=== PATIENT | female | born 1985 | race Caucasian/White ===

== ENCOUNTER 2023-12-06 20:19 | Emergency (ER) | payer MEDICAID, SELFPAY ==
[2023-12-06 20:23] VITALS: BP 139/82; PULSE 67; RESP 16; TEMP 36.3; O2SAT 98; BMI 35.7
--- NOTE | 2023-12-06 20:46 | ED.GENADULT ---
HPI - General Adult General Chief complaint: Post Op Complication Stated complaint: Steri-strips fraying R leg Time Seen by Provider: 12/06/23 20:42 History of Present Illness HPI narrative: Patient is a 38-year-old woman who had a lipoma resected from her right medial thigh. She is complaining tonight of discomfort at the application site of the Steri-Strips. She has had minimal bruising or ecchymosis but feels like the bandages irritating her. No significant bleeding. Patient otherwise feeling well no major complaints or concerns. Related Data Home Medications ?Medication ?Instructions ?Recorded ?Confirmed No Known Home Medications 08/07/23 12/06/23 Allergies Allergy/AdvReac Type Severity Reaction Status Date / Time No Known Drug Allergies Allergy Verified 12/06/23 20:23 Review of Systems Status of ROS: Reports: 6 or more systems reviewed and unremarkable except as noted in History and below [facility] Medical History Worried well ?Z71.1 - Person with feared health complaint in whom no diagnosis is made (ICD-10) Viral pharyngitis ?J02.9 - Acute pharyngitis, unspecified (ICD-10) Strain of shoulder ?S46.919A - Strain of unspecified muscle, fascia and tendon at shoulder and upper arm level, unspecified arm, initial encounter (ICD-10) Recurrent headache ?R51.9 - Headache, unspecified (ICD-10) Pain of foot ?M79.673 - Pain in unspecified foot (ICD-10) Migraine ?G43.909 - Migraine, unspecified, not intractable, without status migrainosus (ICD-10) Headache ?R51.9 - Headache, unspecified (ICD-10) Foot contusion ?S90.30XA - Contusion of unspecified foot, initial encounter (ICD-10) Episode of heavy vaginal bleeding ?N93.9 - Abnormal uterine and vaginal bleeding, unspecified (ICD-10) Encounter for postoperative wound check ?Z48.89 - Encounter for other specified surgical aftercare (ICD-10) Biliary colic ?K80.50 - Calculus of bile duct without cholangitis or cholecystitis without obstruction (ICD-10) Surgical History S/P foot surgery, right (04/23/11) ?Z98.890 - Other specified postprocedural states (ICD-10) History of surgical fusion joint (11/11/16) ?Z98.1 - Arthrodesis status (ICD-10) Social History Smoking Status: Never smoker Do you use any of these nicotine containing products: None Non-prescribed substance use: denies use Exam Narrative: Exam Narrative: EXAM GENERAL: Patient appears comfortable and well. EYES: No scleral icterus. LYMPH: No supraclavicular or cervical lymphadenopathy. SKIN: Well-healing incision on the right medial thigh no other significant findings. EXT: No dependent lower extremity pedal edema. HEART: Regular rate and rhythm with no murmurs, rubs, or gallops. LUNGS: Clear to auscultation bilaterally with no crackles or wheezes. ABD: Soft, non tender, non distended. PSYCH: Good eye contact, speech is not pressured. Const: Vital Signs, click to edit/add: Vital Signs - 24 hr 12/06/23 20:23 Temperature 97.3 F L Pulse Rate [Pulse Oximeter] 67 Respiratory Rate 16 Blood Pressure [Ri ght Upper Arm] 139/82 Pulse Oximetry 98 Oxygen Delivery Me thod Room Air Course Vital Signs Vital signs: Initial Vital Signs Temperature 97.3 F L 12/06/23 20:23 Temperature Source Temporal Artery Scan 12/06/23 20:23 Pulse Rate 67 12/06/23 20:23 Respiratory Rate 16 12/06/23 20:23 Blood Pressure 139/82 12/06/23 20:23 Blood Pressure Mean 101 12/06/23 20:23 Blood Pressure Position Sitting 12/06/23 20:23 Pulse Oximetry 98 12/06/23 20:23 Oxygen Delivery Method Room Air 12/06/23 20:23 Vital Signs Temperature 97.3 F L 12/06/23 20:23 Pulse Rate 67 12/06/23 20:23 Respiratory Rate 16 12/06/23 20:23 Blood Pressure 139/82 12/06/23 20:23 Pulse Oximetry 98 12/06/23 20:23 Oxygen Delivery Method Room Air 12/06/23 20:23 Temperature 97.3 F L 12/06/23 20:23 Pulse Rate 67 12/06/23 20:23 Respiratory Rate 16 12/06/23 20:23 Blood Pressure 139/82 12/06/23 20:23 Pulse Oximetry 98 12/06/23 20:23 Oxygen Delivery Method Room Air 12/06/23 20:23 Discharge Plan Discharge Clinical Impression: Incisional irritation Patient Disposition: Home, Self-Care Condition: Stable Additional Instructions: Continue current care Follow-up with your doctor as needed. Activity Level: No Restrictions Discharge Diet: Regular Prescriptions: No Action No Known Home Medications Follow Up/Referrals: Provider,Not a Local [Primary Care Provider] - Stand Alone Forms: MyHealth Info Instructions
== END 2023-12-06 20:55 | disposition home or self-care (01) ==
PROVIDERS: Emergency Provider Internal Medicine; PCP Family Medicine
DX: G89.18 Other acute postprocedural pain (principal)
CPT/HCPCS: 99282; 99283

== ENCOUNTER 2024-03-05 10:45 | Outpatient (RCR) | payer MEDICAID, SELFPAY | END 2024-06-01 10:05 | disposition home or self-care (01) | PROVIDERS: PCP Family Medicine; Visit Provider Family Medicine | DX: M22.42 Chondromalacia patellae, left knee (principal); M25.562 Pain in left knee; Z51.89 Encounter for other specified aftercare | CPT/HCPCS: 97110; 97112; 97140; 97161 ==

== ENCOUNTER 2024-08-21 22:20 | Emergency (ER) | payer MEDICAID, SELFPAY ==
--- OUTSIDE RECORDS SUMMARY | 2024-08-21 22:24 | XMS_ITS | Clinical Summary ---
Author Organization [facility] Address [address] [place] [address] Care Team Providers Care Unix Administrator Name Role Phone Maria Victoria Camar[place] [facility] Unavailable Unavaila Aelxus Bazan MD Unavailable [phone] Alyse Watson DO Primary Care Provider [phone] Allergies No known active allergies Medications oxyCODONE-aceta minophen 5-325 mg per tabletIndicatio ns:S/P left knee arthroscopy Take 1-2 Tablets by mouth every 6 hours if needed for Pain. Max acetaminophen dose: 4000mg in 24 hrs. 30 Tablet 5 5:32 PM CDT 08/20/19 25 Active methocarbamoL 750 mg tabletIndicatio ns:S/P left knee arthroscopy Take 1 Tablet (750 mg) by mouth every 6 hours if needed for Muscle Spasm. 30 Tablet 5 5:32 PM CDT 08/20/19 25 Active aspirin 81 mg enteric coated tabletIndicatio ns:S/P left knee arthroscopy Take 1 Tablet (81 mg) by mouth two times daily with meals for 14 days. 28 Tablet 5 5:32 PM CDT 08/20/19 25 025 Active docusate 100 mg capsuleIndicati ons:S/P left knee arthroscopy Take 1 Capsule (100 mg) by mouth 2 times daily if needed (constipation). 30 Capsule 5 5:32 PM CDT 08/20/19 25 Active ondansetron 4 mg tabletIndicatio ns:S/P left knee arthroscopy Take 1 Tablet (4 mg) by mouth every 8 hours if needed for Nausea/Vomiting. 20 Tablet 5 5:32 PM CDT 08/20/19 25 Active meloxicam 15 mg tabletIndicatio ns:Chondromalac ia of left patella Take 1 Tablet (15 mg) by mouth once daily. 30 Tablet 2 01/01/20 24 025 Discontin ued(*Med complete/ Regimen complete/ Level of care change) Active Problems Problem Noted Date Diagnosed Date Medial Plica syndrome of left knee 07/16/2024 Chondromalacia of patellofemoral joint, left 07/2024 GIL III (cervical intraepith elial neoplasia grade III) with severe dysplasia 04/14/2016 Overview (12/04/2023): 04/2011 LSIL 05/2011 [place]: GIL I 01/2014 NIL/HPV+ 02/2014 [place]: Negative 04/2016 ASCH/HPV+ 05/2016 [place]: GIL II-III 05/2018 ASCUS/HPV Negative 11/2023 NIL/HPV Negative Plan: Pap/HPV testing due in 1 year Migraines 12/24/2012 Recurrent major depression in partial remission 07/20/2012 HSV-1 (herpes simplex virus 1) infection 012 Tobacco use disorder 01/20/2007 Resolved Problems Problem Noted Date Diagnosed Date Resolved Date Cervical high risk HPV (gela n papillomavirus) test positive 01/13/2014 12/04/2023 Overview (05/17/2016): 01/2014 NIL/HPV+ LGSIL (low grade squamous in traepithelial dysplasia) 201105/13/2011 12/04/2023 Major depressive disorder, r ecurrent episode, moderate 07/25/2010 07/20/2012 Unspecified episodic mood disorder 02/24/2007 07/20/2012 Supervision of other normal 12/05/2006 Encounters Date Type Department Care Team Description 08/21/2024 Telephone [facility] [address] [place] [address] [address] Armando Kapoor MD Pain (Pain after surgery.) 08/21/2024 Nurse Triage [facility] [address] [place] [address] Sincere Littlejohn MD Post-op 08/19/2024 11:14 AM CDT Anesthesia Event [facility] [address] [place] [address] Joann Adam CRNA Peterson, Bonnie Gail, CRNA 08/19/2024 11:05 AM CDT - 08/19/2024 12:50 PM CDT Surgery [facility] [address] [place] [address] Sincere Littlejohn MD Arthroscopic CHONDROPLASTY - LT KNEE, PARTIAL SYNOVECTOMY(FAT PAD OR PLICA) - LT KNEE 08/19/2024 9:33 AM CDT - 08/19/2024 2:12 PM CDT Hospital Encounter [facility] [address] [place] [address] Sincere Littlejohn MD Chondromalacia of patellofemoral joint, left (Primary Dx); Medial Plica syndrome of left knee; S/P left knee arthroscopy Discharge Disposition: Home Self Care 08/19/2024 Travel 08/11/2024 11:15 AM CDT Office Visit [facility] [address] [place] [address] Idalia Perez MD Pre-Op Exam (Arthroscopic CHONDROPLASTY - LT KNEE - PARTIAL SYNOVECTOMY(FAT PAD OR PLICA) - LT KNEE [facility] 08/19/24) 08/11/2024 Travel 08/06/2024 Travel 07/16/2024 12:45 PM CDT Office Visit [facility] [address] [place] [address] Sincere Littlejohn MD Consult (left knee) 07/16/2024 12:30 PM CDT Ancillary Procedure [facility] [address] [place] [address] 07/16/2024 Travel 07/14/2024 Telephone [facility] [place] [address] [facility] [address] [place] [phone] Sincere Littlejohn MD Appointment (Needs x-rays) 07/11/2024 Travel 05/28/2024 9:00 AM RN STARS Procedure Only [facility] [address] [place] [address] J Luis Cuadra MD Procedure (Ultrasound guided injection lef... 05/28/2024 Travel from Last 3 Months Immunizations Immunization Administration Dates Next Due DT (Age < 7 years) 08/02/1991,04/02/1988 DTP 11/07/1987,08/07/1987,02/24/1987 Hepatitis B (Peds) 07/19/1998,04/27/1998, 998 Hepatitis B, Unspecified 07/19/1998,04/27/1998,1 04/23/1997 Influenza, IIV3 (Age >=3 years) 02/15/2010,01/02,05/27/2006 MMR 04/02/1988 Oral Polio Vaccine 08/02/1991,04/02/1988, 988,02/24/1987 Tdap 09/29/2019,10/12/2012,01/02/2009 Family History Medical History Relation Name Comments Asthma Father COPD Father Psychiatric illness Father Depressi on Cancer-breast Maternal Aunt in her 50's Arthritis Mother Other Mother migraines Psychiatric illness Mother Depressi on Relation Name Status Comments Father Maternal Aunt Mother Alive Social History Tobacco Use Types Packs/Day Years Used Date Smoking Tobacco: Every Day Cigarettes 0.3 5 Smokeless Tobacco: Never Tobacco Cessation:Ready to Q uit: No; Counseling Given: Yes Comments:less than 1/2 pack a day Alcohol Use Standard Drinks/Week Comments No 0 (1 standard drink = 0.6 oz pur e alcohol) PHQ-2 Answer Date Recorded PHQ-2 TOTAL SCORE 6 11/21/2023 Social Connections Answer Date Recorded Do you often feel lonely or isolated from those around you? 4 12/19/2023 Financial Resource Strain Answer Date R ecorded Difficulty of Paying Living Expenses 3 11/21/2023 Difficulty of Paying Living Expenses Not on file 11/21/2023 Food Insecurity Answer Date Recorded Do you worry your food will run out before you are able to buy more? 1 12/19/2023 Transportation Needs Answer Date Record ed Does lack of transportation keep you from medica l appointments? 1 12/19/2023 Does lack of transportation keep you from work, meetings or getting things that you need? 1 12/19/2023 Housing Stability Answer Date Recorded What is your housing situation today? 3 12/19/2023 Utilities Answer Date Recorded Do you have trouble paying f or utilities (for example, heat, electricity, water, phone)? 1 12/19/2023 Comments No Sex and Gender Information Value Date Recorded Sex Assigned at Not on file Legal Sex Female 5:41 AM RN STARS Gender Identity Not on file Sexual Orientation Not on file Obstetrics History Para Term AB IAB SAB Ectopic Multiple Livin g Live Births 6 3 2 0 3 0 3 0 0 3 3 Date Outcome GA Total Labor Labor/2nd/3rd Weight Sex Type Anes PTL Radha A1 A5 Name Clin 2006 Term 40w 0d 10h 00m/ 3.46 kg (7 lb 10 oz) M VAGINA L FORC Livin g Manavjose y 2007 Para F Vag Livin g Savannah 2007 SAB Comments:Molar pregnan cy 9 SAB 9 SAB 2019 Term Vag Livin g Jeromy Last Filed Vital Signs Vital Sign Reading Time Taken Comments Blood Pressure 98/56 08/19/2024 2:05 PM CDT Pulse 63 08/19/2024 2:05 PM CDT Temperature 36.1 C (97 F) 08/19/2024 1:30 PM CDT Respiratory Rate 16 08/19/2024 2:00 PM CDT Oxygen Saturation 96% 08/19/2024 2:05 PM CDT Inhaled Oxygen Concentration - - Weight 85.7 kg (188 lb 15 oz) 08/19/2024 10:09 A M CDT Height 152.4 cm (5') 08/19/2024 10:09 AM CDT Body Mass Index 36.9 08/19/2024 10:09 AM CDT Plan of Treatment Upcoming Encounters Date Type Department Care Team (Late st Contact Info) Description 09/02/2024 2:30 PM CDT Office Visit [facility] [address] [place] [phone] Artem De La Torre PA [address] [place] [address] [address] [place] [id number] 10/14/2024 2:00 PM CDT Office Visit [facility] [address] [place] [phone] Artem De La Torre PA [address] [place] [address] [address] [place] [id number] 12/17/2024 1:45 PM CDT Office Visit [facility] [address] [place] [address] Sincere Littlejohn MD [address] [place] [address] [address] [place] [phone] Health Maintenance Due Date Last Done Comments Hepatitis C screening for ag e 18-79 2004 Pneumococcal series for age 6-49 (1 of 2 - PCV) 2005 COVID-19 vaccine series ( - 2023- season) 2023 Depression screening for age 12+ 11/20/2024 11/21/2023, 11/04/2016, 08/26/2016, Additional history exists Pap test for age 21-65 11/20/2024 , 11/21/2023, 06/02/2018, Additional history exists Influenza Vaccine (Season Ended) 2024 02/15/2010, 01/02/2009, 05/27/2006 BMI (ht and wt on same day) for age 18+ 08/11/2025 08/11/2024, 08/11/2024, 12/01/2023, Additional history exists Tetanus booster 09/28/2029 09/29/2019, 07/0 04/2012, 01/02/2009 HIV for age 15-65 Completed 07/24/2007 Tdap Completed 09/29/2019, 07/0 04/2012, 01/02/2009 Procedures Procedure Name Priority Date/Time Associated Diagnosis Comments SUPRAGLOTTIC-LMA Routine 08/19/2024 11:4 1 AM CDT URINE Preop 08/19/2024 9:52 AM CDT XR KNEE WB 1 VIEW AP BILATERAL AND 3 VIEWS LEFT Routine 07/16/2024 12:38 PM CDT Left knee pain, unspecified chronicity BEDSIDE US STUDY ARCHIVE Routine 05/28/2024 11:59 AM RN STARS Plica syndrome of left knee Chondromalacia of left patella HPV HIGH RISK Routine 11/21/2023 3:55 PM CDT Screening for cervical cancer ANTI HIV 1/2 Routine 07/24/2007 10:59 AM CDT Supervision Of Other Normal (Hc) from Last 3 Months or Most Recently Relevant to Health Maintenance Results * Supraglottic (08/19/2024 11:41 AM CDT) Narrative Joann Adam CRNA - 08/19/2024 11:41 AM CDT Joann Adam CRNA 08/19/2024 11:45 AM Procedure: Supraglottic Patient location during procedure: OR Supraglottic Airway Properties Mask Ventilation: not attempted Type: i-gel Tube Size: 4 Placement Verification: auscultation and CO2 detection Assessment Assessment: atraumatic and dentition unchanged Joann Adam CRNA ANESTHESIA PX NOTE ORDER VIJAYA Final Result * Urine (08/19/2024 9:52 AM CDT) ,URIN E Negative Negative 08/19/2024 9:56 AM CDT [facility] Urine URINE SPECIMEN / Unknown Non-Blood / Unknown 08/19/2024 9:52 AM CDT 08/19/2024 9:52 AM CDT Micaela Taylor PA URINE Final R esult [facility] [address] [place] [address] * XR KNEE WB 1 VIEW AP BILATERAL AND 3 VIEWS LEFT (07/16/2024 12:38 PM CDT) Anatomical Region Laterality Modality KNEES, KNEE L Computed Radiogr aphy 07/16/2024 3:4 1 PM CDT Narrative 07/16/2024 3:41 PM CDT For Patients: As a result of the Cures Act, medical imaging exams and procedure reports are released immediately into your electronic medical record. You may view this report before your referring provider. If you have questions, please contact your health care provider. Indication: Left knee pain, unspecified chronicity Technique: XR KNEE WB 1 VIEW AP BILATERAL AND 3 VIEWS LEFT Comparison: 02/16/2014 Findings: Bones: Alignment is normal. No fractures or bone lesions. Joint spaces: Joint spaces are well maintained. No degenerative changes. No sign of joint effusion. Soft tissues: Unremarkable. Impression: No findings to explain pain. Dictated by Ahmet Bullock MD @ 07/16/2024 3:41:07 PM (Electronically Signed) Procedure Note Ahmet Bullock MD - 07/16/2024 For Patients: As a result of the Cures Act, medical imagingexams and procedure reports are released immediately into your electronicmedical record. You may view this report before your referring provider.If you have questions, please contact your health care provider. Indication: Left knee pain, unspecified chronicity Technique: XR KNEE WB 1 VIEW AP BILATERAL AND 3 VIEWS LEFT Comparison: 02/16/2014 Findings: Bones: Alignment is normal. No fractures or bone lesions. Joint spaces: Joint spaces are well maintained. No degenerative changes.No sign of joint effusion. Soft tissues: Unremarkable. Impression: No findings to explain pain. Dictated by Ahmet Bullock MD @ 07/16/2024 3:41:07 PM (Electronically Signed) Sincere Littlejohn MD GENERAL IMAGING Final Resul t * BEDSIDE US STUDY ARCHIVE (05/28/2024 11:59 AM RN STARS) Narrative Alley Nelson Mariama - 05/28/2024 11:59 AM RN STARS The patient was seen for ultrasound guided injection by Dr. J Luis Cuadra. Ultrasound was not used for diagnostic purposes, but to guide the needle placement and document the position of the injection. See patient's EPIC encounter for the detail of the procedure; see MYRIAM for saved images of the injection. us J Luis Cuadra MD PROCEDURE ORD Final Resu lt * HPV HIGH RISK (11/21/2023 3:55 PM CDT) TYPE 16 Negative Negative 11/26/2023 9:12 AM CDT [facility] TYPE 18 Negative Negative 11/26/2023 9:12 AM CDT [facility] OTHER HIGH RISK TYPES Negative Negative 11/26/2023 9:12 AM CDT [facility] Other (Cervical) Non-Blood / Unknown 11/21/2023 3:55 PM CDT 11/24/2023 9:57 AM CDT Narrative [facility] - 11/26/2023 9:12 AM CDT HPV types 16, 18, 31, 33, 35, 39, 45, 51, 52, 56, 58, 59, 66 and 68 DNA were undetectable or below the pre-set threshold. Methodology: Sanaz Stephan 4800 HPV Test us Alyse Watson DO MICROBIOLOGY Final Resu lt [facility] [address] [place] [address], * ANTI HIV 1/2 (07/24/2007 10:59 AM CDT) ANTI HIV 1/2 Non-reacti ve [facility] Blood specimen (specimen) BLOOD SPECIMEN / Unknown 07/24/2007 10:59 AM CDT 07/24/2007 10:06 AM CDT us rAti Taylor MD SEND OUTS Final Result [facility] INTERNAL ZIP [address] [address] from Last 3 Months or Most Recently Relevant to Health Maintenance Insurance [facility] [address] [address] [place] [id number] Advance Directives * Full Code (Latest Code Status on File) Date Activated Date Inactivated Comments 08/19/2024 9:38 AM 08/19/2024 4:27 PM Question Answer Comments Code Status Discussion: Unable to Assess Preferences, Provider to review later Care Teams Unix Administrator Relationship Specialty Start Date End Date Alyse Watson DO [address] [place] [address] PCP - General Family Practice 08/17/24 Maria Victoria [place]ar[place] CNS Clinical Nurse Specialist 05/04/12 Alexus Smith MD HOME CARE ASSISTANT Obstetrics and Gynecology 09/29/12
[2024-08-21 22:27] VITALS: BP 148/81; PULSE 84; RESP 18; TEMP 36.7; O2SAT 98
--- NOTE | 2024-08-21 22:39 | ED.GENADULT ---
HPI - General Adult General Chief complaint: Extremity Pain/Injury, Lower Stated complaint: L knee pain, post surgery Time Seen by Provider: 08/21/24 22:28 History of Present Illness HPI narrative: This 38-year-old female comes in here because of knee pain after surgery that occurred 2 days ago. She had this surgery done in [place] and it was a procedure to remove a fat pad or apply cuff from her left knee. It was a arthroscopic surgery. The patient states that she did really well for the next day or so but today has had significant pain and was not able to bear weight at all. She did call the orthopedic office and was told to loosen the wrap on her knee. She did this without much relief. She was instructed to come in here. She arrives with normal vital signs. Related Data Previous Rx's ?Medication ?Instructions ?Recorded ketorolac 10 mg tablet 10 mg PO TID 5 days #15 tabs 08/21/24 Allergies Allergy/AdvReac Type Severity Reaction Status Date / Time No Known Drug Allergies Allergy Verified 12/06/23 20:23 Review of Systems Status of ROS: Reports: 10 or more systems reviewed and unremarkable except as noted in History and below Narrative: Constitutional: No fevers, no weight gain or loss. Eyes: No discharge. No vision changes. HENT: No congestion, no sore throat, no ear pain. Cardiovascular: No chest pain, no palpitations. Respiratory: No shortness of breath, no wheezes, no cough. Gastrointestinal: No abdominal pain, no vomiting, no diarrhea. Genitourinary: No dysuria, no hematuria. Musculoskeletal: Surgery to the left knee as described above. Skin: No rashes, no pruritis. Neurological: No dizziness, weakness, sensory change, speech change. Endo/Heme/Allergies: No bruising or bleeding. No polydipsia. Pysch: no suicidality, no anxiety, no insomnia. All other systems reviewed and are negative. [facility] Medical History Worried well ?Z71.1 - Person with feared health complaint in whom no diagnosis is made (ICD-10) Viral pharyngitis ?J02.9 - Acute pharyngitis, unspecified (ICD-10) Strain of shoulder ?S46.919A - Strain of unspecified muscle, fascia and tendon at shoulder and upper arm level, unspecified arm, initial encounter (ICD-10) Recurrent headache ?R51.9 - Headache, unspecified (ICD-10) Pain of foot ?M79.673 - Pain in unspecified foot (ICD-10) Migraine ?G43.909 - Migraine, unspecified, not intractable, without status migrainosus (ICD-10) Headache ?R51.9 - Headache, unspecified (ICD-10) Foot contusion ?S90.30XA - Contusion of unspecified foot, initial encounter (ICD-10) Episode of heavy vaginal bleeding ?N93.9 - Abnormal uterine and vaginal bleeding, unspecified (ICD-10) Encounter for postoperative wound check ?Z48.89 - Encounter for other specified surgical aftercare (ICD-10) Biliary colic ?K80.50 - Calculus of bile duct without cholangitis or cholecystitis without obstruction (ICD-10) Surgical History S/P foot surgery, right (04/23/11) ?Z98.890 - Other specified postprocedural states (ICD-10) History of surgical fusion joint (11/11/16) ?Z98.1 - Arthrodesis status (ICD-10) Social History Smoking Status: Never smoker Do you use any of these nicotine containing products: None Non-prescribed substance use: denies use Exam Narrative: Exam Narrative: Constitutional: Well-developed, well-nourished, no acute distress. HEENT: Normocephalic, atraumatic. Neck: Normal range of motion. Nontender. Supple. Heart: Intact distal pulses. Lungs: No chest discomfort. No wheezes, rhonchi, or rales. Abdomen: Nontender. Back: Normal range of motion. Extremities: Left knee bandaging was removed to examine the knee. The surgical wounds from arthroscopy appear to be healing normally without any sign of drainage or infection. There is typical associated surrounding edema and erythema. Skin: Intact. No rash. Warm. No erythema or pallor. Neurologic: No altered sensation. No weakness. Alert and oriented. Psychiatric: No suicidality. No anxiety or depression. No insomnia. Nursing notes and vitals signs are reviewed. Const: Vital Signs, click to edit/add: Vital Signs - 24 hr 08/21/24 22:27 Temperature 98.1 F Pulse Rate [Right Pulse Oximeter] 84 Respiratory Rate 18 Blood Pressure [Ri ght Upper Arm] 148/81 H Pulse Oximetry 98 Oxygen Delivery Me thod Room Air Course Vital Signs Vital signs: Initial Vital Signs Temperature 98.1 F 08/21/24 22:27 Temperature Source Temporal Artery Scan 08/21/24 22:27 Pulse Rate 84 08/21/24 22:27 Respiratory Rate 18 08/21/24 22:27 Blood Pressure 148/81 H 08/21/24 22:27 Blood Pressure Mean 103 08/21/24 22:27 Blood Pressure Position Sitting 08/21/24 22:27 Pulse Oximetry 98 08/21/24 22:27 Oxygen Delivery Method Room Air 08/21/24 22:27 Vital Signs Temperature 98.1 F 08/21/24 22:27 Pulse Rate 84 08/21/24 22:27 Respiratory Rate 18 08/21/24 22:27 Blood Pressure 148/81 H 08/21/24 22:27 Pulse Oximetry 98 08/21/24 22:27 Oxygen Delivery Method Room Air 08/21/24 22:27 Temperature 98.1 F 08/21/24 22:27 Pulse Rate 84 08/21/24 22:27 Respiratory Rate 18 08/21/24 22:27 Blood Pressure 148/81 H 08/21/24 22:27 Pulse Oximetry 98 08/21/24 22:27 Oxygen Delivery Method Room Air 08/21/24 22:27 Medical Decision Making [facility] Narrative Medical decision making narrative: This patient has increased pain in her left knee status post a arthroscopic surgery done 2 days ago. I did examine her knee and see no sign of infection or other complication. It seems her issue was a matter of pain relief at this time and for this visit. She may have had an injection of a longer lasting medicine that has now worn off. The patient did receive an intramuscular injection of morphine 10 mg. The left knee was read bandaged and she is instructed to follow-up with her primary surgeon for ongoing management. She does have oxycodone that she can take for pain relief and I did provide a prescription for Toradol. Discharge Plan Discharge Clinical Impression: Post-op pain Patient Disposition: Home, Self-Care Condition: Stable Additional Instructions: Take medication for pain as needed and directed. Use crutches for assistance in ambulating. Follow up with surgery Clinic for ongoing management. Prescriptions: New ketorolac 10 mg tablet 10 mg PO TID 5 Days Qty: 15 0RF Follow Up/Referrals: Alyse Watson DO [Primary Care Provider] - Stand Alone Forms: Trly Un[employer] Info Instructions
--- OUTSIDE RECORDS SUMMARY | 2024-08-21 22:49 | XMS_ITS | Clinical Summary ---
Author Organization [facility] Address [address] [place] [address] Care Team Providers Care Disintegrator Name Role Phone Maria Victoria Camarillo [facility] Unavailable Unavaila Alexus Bazan MD Unavailable [phone] Alyse Watson DO Primary Care Provider [phone] Allergies No known active allergies Medications oxyCODONE-aceta [...] dysplasia 04/14/2016 Overview (12/04/2023): 04/2011 LSIL 05/2011 Malcom: GIL I 01/2014 NIL/HPV+ 02/2014 Malcom: Negative 04/2016 ASCH/HPV+ 05/2016 Malcom: GIL II-III 05/2018 ASCUS/HPV Negative 11/2023 NIL/HPV [...] Type Department Care Team Description 08/21/2024 Telephone [address] [place] [address] Armando Kapoor MD Pain (Pain after surgery.) 08/21/2024 Nurse Triage [facility] [address] [facility] [place] [address] Sincere Littlejohn MD Post-op 08/19/2024 11:14 AM CDT Anesthesia Event [facility] [address] [place] [address] Joann Adam CRNA Peterson, Bonnie Gail, CRNA 08/19/2024 11:05 AM CDT - 08/19/2024 12:50 PM CDT Surgery [facility] [address] [place] [address] Sincere Littlejohn MD Arthroscopic CHONDROPLASTY - LT KNEE, PARTIAL SYNOVECTOMY(FAT PAD OR PLICA) - LT KNEE 08/19/2024 9:33 AM CDT - 08/19/2024 2:12 PM CDT Hospital Encounter [facility] [address] [place] [address] Sincere Littlejohn MD Chondromalacia of patellofemoral joint, left (Primary Dx); Medial Plica syndrome of left knee; S/P left knee arthroscopy Discharge Disposition: Home Self Care 08/19/2024 Travel 08/11/2024 11:15 AM CDT Office Visit [facility] [address] [facility] [place] [address] Idalia Perez MD Pre-Op Exam (Arthroscopic CHONDROPLASTY - LT KNEE - PARTIAL SYNOVECTOMY(FAT PAD OR PLICA) - LT KNEE [facility] 08/19/24) 08/11/2024 Travel 08/06/2024 Travel 07/16/2024 12:45 PM CDT Office Visit [facility] [address] [facility] [place] [address] Sincere Littlejohn MD Consult (left knee) 07/16/2024 12:30 PM CDT Ancillary Procedure [facility] [address] [facility] [place] [address] 07/16/2024 Travel 07/14/2024 Telephone [facility] [place] [address] [facility] [address] [place] [phone] Sincere Littlejohn MD Appointment (Needs x-rays) 07/11/2024 Travel 05/28/2024 9:00 AM SUPERVISOR DYER Procedure Only [facility] [address] [facility] [place] [address] J Luis Cuadra MD Procedure (Ultrasound guided [...] on file Legal Sex Female 5:41 AM SUPERVISOR DYER Gender Identity Not on file Sexual Orientation [...] Description 09/02/2024 2:30 PM CDT Office Visit [facility] [address] [place] [phone] Artem De La Torre PA [address] [place] [address] [address] [place] [address] 10/14/2024 2:00 PM CDT Office Visit [facility] [address] [place] [phone] Artem De La Torre PA [address] [place] [address] 1 [place] [address] 12/17/2024 1:45 PM CDT Office Visit [facility] [address] [place] [address] Sincere Littlejohn MD [address] [place] [address] [address] [place] [address] Health Maintenance Due Date Last Done Comments [...] US STUDY ARCHIVE Routine 05/28/2024 11:59 AM SUPERVISOR DYER Plica syndrome of left knee Chondromalacia of [...] E Negative Negative 08/19/2024 9:56 AM CDT [facility] Urine URINE SPECIMEN / Unknown Non-Blood / Unknown 08/19/2024 9:52 AM CDT 08/19/2024 9:52 AM CDT Micaela Taylor PA URINE Final R esult [facility] [address] [place] [address] * XR KNEE WB 1 VIEW AP [...] BEDSIDE US STUDY ARCHIVE (05/28/2024 11:59 AM SUPERVISOR DYER) Narrative Alley Nelson Mariama - 05/28/2024 11:59 AM SUPERVISOR DYER The patient was seen for ultrasound guided [...] 16 Negative Negative 11/26/2023 9:12 AM CDT [facility] TYPE 18 Negative Negative 11/26/2023 9:12 AM CDT [facility] OTHER HIGH RISK TYPES Negative Negative 11/26/2023 9:12 AM CDT [facility] Other (Cervical) Non-Blood / Unknown 11/21/2023 3:55 PM CDT 11/24/2023 9:57 AM CDT Narrative [facility] - 11/26/2023 9:12 AM CDT HPV types 16, 18, 31, 33, 35, 39, 45, 51, 52, 56, 58, 59, 66 and 68 DNA were undetectable or below the pre-set threshold. Methodology: Sanaz Stephan 4800 HPV Test us Alyse Watson DO MICROBIOLOGY Final Resu lt [facility] [address] [place] [address], * ANTI HIV 1/2 (07/24/2007 10:59 AM CDT) ANTI HIV 1/2 Non-reacti ve [facility] Blood specimen (specimen) BLOOD SPECIMEN / Unknown 07/24/2007 10:59 AM CDT 07/24/2007 10:06 AM CDT us Arti Taylor MD SEND OUTS Final Result [facility] INTERNAL ZIP [address] [address] from Last 3 Months or Most Recently Relevant to Health Maintenance Insurance [employer] [facility] [facility] [address] [place] [id number] Advance Directives * Full Code (Latest Code Status on File) Date Activated Date Inactivated Comments 08/19/2024 9:38 AM 08/19/2024 4:27 PM Question Answer Comments Code Status Discussion: Unable to Assess Preferences, Provider to review later Care Teams Disintegrator Relationship Specialty Start Date End Date Alyse Watson DO [address] [place] [address] PCP - General Family Practice 08/17/24 Maria Victoria Camarillo CNS Clinical Nurse Specialist 05/04/12 Alexus Smith MD [employer]STATE OPERATIONS MANAGER Obstetrics and Gynecology 09/29/12
[2024-08-21] MEDS: MORPHINE 10 MG/ML inj IM (22:52)
== END 2024-08-21 23:06 | disposition home or self-care (01) ==
LOC: ED 22:48
PROVIDERS: Emergency Provider Emergency Medicine Emergency Medical Services; PCP Family Medicine
DX: G89.18 Other acute postprocedural pain (principal); M25.562 Pain in left knee
CPT/HCPCS: 96372; 99283; 99284; J2270

== ENCOUNTER 2024-12-09 13:00 | Outpatient (RCR) | payer MEDICAID, SELFPAY | END 2025-04-08 23:59 | disposition home or self-care (01) | PROVIDERS: PCP Family Medicine; Visit Provider Orthopaedic Surgery | DX: Z48.89 Encounter for other specified surgical aftercare (principal); Z51.89 Encounter for other specified aftercare | CPT/HCPCS: 97110; 97112; 97161 ==